=== PATIENT | male | born 1985 | race Caucasian/White ===

== ENCOUNTER 2017-01-29 09:10 | Emergency (ER) | payer BC ==
[2017-01-29] MEDS ORDERED: Ketorolac 60 MG/2 ML SDV IM ONE (10:09)
--- NOTE | 2017-01-29 10:18 | EDM.PDOC ---
ED HPI GENERAL MEDICAL PROBLEM - General Chief Complaint: Back Pain or Injury Stated Complaint: BACK PAIN Time Seen by Provider: 01/29/17 09:19 Source of Information: Reports: Patient History Limitations: Reports: No Limitations - History of Present Illness INITIAL COMMENTS - FREE TEXT/NARRATIVE: HISTORY AND PHYSICAL: History of present illness: Patient is a 31-year-old male who presents to the emergency room with complaints of low back pain that radiates down his left gluteus. Patient reports that he has had low back pain for several years, chiropractor told him he had a bulging disc at L4-L5 but has not had any imaging to confirm this. He states that he has set up an appointment with a primary care provider, Dr. Walker Kaplan, on Thursday to get his back pain further managed. He noticed over the past couple days while at work she has had increased low back pain with it radiating down the left gluteus some numbness and tingling. He states he had gone to a chiropractor yesterday with moderate relief but again woke up this morning with increased pain. Denies any recent injury or trauma to the back. Denies any urinary or fecal incontinence. States he has never had an x-ray of his low back. Review of systems: As per history of present illness and below otherwise all systems reviewed and negative. Past medical history: As per history of present illness and as reviewed below otherwise noncontributory. Surgical history: As per history of present illness and as reviewed below otherwise noncontributory. Social history: No reported history of drug or alcohol abuse. Family history: As per history of present illness and as reviewed below otherwise noncontributory. Physical exam: Gen.: Developed and well-nourished 31-year-old male. Able to speak in full sentences without shortness of breath. Alert and oriented. HEENT: Atraumatic, normocephalic, pupils reactive, negative for conjunctival pallor or scleral icterus, mucous membranes moist, throat clear, neck supple, nontender, trachea midline. Lungs: Clear to auscultation, breath sounds equal bilaterally, chest nontender. Heart: S1S2, regular rate and rhythm Abdomen: Soft, nondistended, nontender. Negative for masses or hepatosplenomegaly. Negative for costovertebral tenderness. Pelvis: Stable nontender. Genitourinary: Deferred. Rectal: Deferred. Back: Cervical spine and back were palpated with no tenderness, crepitus, or obvious deformities or step-offs. Patient does have flexion and extension at the hips and is able to twist side to side without difficulty. Extremities: Atraumatic, negative for cords or calf pain. Strong palpable pedal pulses bilaterally. Neurovascular unremarkable. Skin: Warm, dry and intact. No obvious lesions or sores noted. Neuro: Awake, alert, oriented. Cranial nerves II through XII unremarkable. Cerebellum unremarkable. Motor and sensory unremarkable throughout. Exam nonfocal. Diagnostics: Lumbar spine x-ray Therapeutics: Toradol and Norflex IM Impression: Lumbar back pain with sciatica Plan: 1. Please take your medications as prescribed. With the Cataflam I would like you to take this with food and do not take any additional NSAIDs with this. Please take Flexeril as prescribed, may cause some drowsiness and do not take this while driving or needing to be functioning at work. You may take Tylenol [id number] as needed for breakthrough pain. 2. If your symptoms worsen or new symptoms arise I would like you to follow-up in the emergency room as we discussed. Follow-up with Dr. Walker Kaplan as you already have scheduled for Thursday. Please inform them that you did have an x- ray and he can look at these results. Definitive disposition and diagnosis as appropriate pending reevaluation and review of above. Onset: Gradual Duration: Chronic Location: Reports: Back Bilateral Lower Back Pain Score (Numeric/FACES): 9 - Related Data Allergies Allergy/AdvReac Type Severity Reaction Status Date / Time Penicillins Allergy Other Verified 01/29/17 09:23 Sulfa (Sulfonamide Allergy Other Verified 01/29/17 09:23 Antibiotics) Home Meds: Home Meds Excedrin 4 tab PO DAILY 01/29/17 [History] Past Medical History HEENT History: Reports: Other (See Below) Other HEENT History: Ear Drum Rupture Musculoskeletal History: Reports: Back Pain, Chronic Neurological History: Reports: Brain Injury, Concussion, Other (See Below) - Infectious Disease History Infectious Disease History: Reports: Chicken Pox - Past Surgical History HEENT Surgical History: Reports: Adenoidectomy, Tonsillectomy Musculoskeletal Surgical History: Reports: Other (See Below) Other Musculoskeletal Surgeries/Procedures:: Multiple Broken Bones, Chronic Back Pain L4-5 Disk Buldge with Degenerative Disk Disease Social & Family History - Family History Family Medical History: Noncontributory - Tobacco Use Smoking Status *Q: Current Every Day Smoker Years of Tobacco use: 14 Packs/Tins Daily: 1 Used Tobacco, but Quit: No Second Hand Smoke Exposure: No - Caffeine Use Caffeine Use: Reports: Energy Drinks, Soda - Recreational Drug Use Recreational Drug Use: No ED ROS GENERAL - Review of Systems Review Of Systems: ROS reveals no pertinent complaints other than HPI. ED EXAM,LOWER BACK PAIN/INJURY - Physical Exam Exam: See Below (See dictation) Course - Vital Signs Last Recorded V/S: Last Vital Signs Temp 36.2 C 01/29/17 09:23 Pulse 96 01/29/17 09:23 Resp 18 01/29/17 09:23 BP 150/107 H 01/29/17 09:23 Pulse Ox 97 01/29/17 09:23 - Orders/Labs/Meds Orders: Active Orders 24 hr Category Date Time Status Orphenadrine [Norflex] Med 01/29/17 10:15 Active 60 mg IM Q12H Medication Orders Orphenadrine Citrate (Norflex) 60 mg IM Q12H MICHELE Last Admin: 01/29/17 10:33 Dose: 60 mg Meds: Medications Generic Name Dose Route Start Last Admin Trade Name Freq PRN Reason Stop Dose Admin Orphenadrine Citrate 60 mg 01/29/17 10:15 01/29/17 10:33 Norflex IM 60 mg Q12H MICHELE Administration Discontinued Medications Generic Name Dose Route Start Last Admin Trade Name Freq PRN Reason Stop Dose Admin Ketorolac Tromethamine 60 mg 01/29/17 10:09 01/29/17 10:33 Toradol IM 01/29/17 10:10 60 mg ONETIME ONE Administration Departure - Departure Time of Disposition: 11:09 Disposition: Home, Self-Care 01 Clinical Impression: Lumbar back pain Qualifiers: Chronicity: chronic Back pain laterality: left Sciatica presence: with sciatica Sciatica laterality: sciatica of left side Qualified Code(s): M54.42 - Lumbago with sciatica, left side - Discharge Information Referrals: PCP,None [Primary Care Provider] - Forms: ED Department Discharge Additional Instructions: My general discharge The following information is given to patients seen in the emergency department who are being discharged to home. This information is to outline your options for follow-up care. We provide all patients seen in our emergency department with a follow-up referral. The need for follow-up, as well as the timing and circumstances, are variable depending upon the specifics of your emergency department visit. If you don't have a primary care physician on staff, we will provide you with a referral. We always advise you to contact your personal physician following an emergency department visit to inform them of the circumstance of the visit and for follow-up with them and/or the need for any referrals to a consulting specialist. The emergency department will also refer you to a specialist when appropriate. This referral assures that you have the opportunity for follow-up care with a specialist. All of these measure are taken in an effort to provide you with optimal care, which includes your follow-up. Under all circumstances we always encourage you to contact your private physician who remains a resource for coordinating your care. When calling for follow-up care, please make the office aware that this follow-up is from your recent emergency room visit. If for any reason you are refused follow-up, please contact the [facility] Emergency Department at and asked to speak to the emergency department charge nurse. [address] [address] 1. Please take your medications as prescribed. With the Cataflam I would like you to take this with food and do not take any additional NSAIDs with this. Please take Flexeril as prescribed, may cause some drowsiness and do not take this while driving or needing to be functioning at work. You may take Tylenol [id number] as needed for breakthrough pain. 2. If your symptoms worsen or new symptoms arise I would like you to follow-up in the emergency room as we discussed. Follow-up with Dr. Walker Kaplan as you already have scheduled for Thursday. Please inform them that you did have an x- ray and he can look at these results. - My Orders Last 24 Hours: My Active Orders 01/29/17 10:15 Orphenadrine [Norflex] 60 mg IM Q12H - Assessment/Plan Last 24 Hours: My Active Orders 01/29/17 10:15 Orphenadrine [Norflex] 60 mg IM Q12H
--- NOTE | 2017-01-29 10:57 | CR ---
EXAMINATION: Lumbar spine HISTORY: Pain COMPARISON: 08/18/2014 TECHNIQUE: AP and lateral views FINDINGS: There is a trace levocurvature of the thoracolumbar spine otherwise the lumbar spinal align ment is normal. Vertebral body heights and disc spaces appear maintained. No fracture or acute osseou s abnormality demonstrated. Facet hypertrophic changes are noted probably at L3-L4 and L4-L5. SI join ts are symmetric. Bone mineralization is normal. IMPRESSION: Early degenerative changes without acute findings.
[2017-01-29 11:27] VITALS: BP 140/93
== END 2017-01-29 11:24 | disposition home or self-care (01) ==
LOC: MW.ED 09:10
DX: M54.42 Lumbago with sciatica, left side (principal); F17.210 Nicotine dependence, cigarettes, uncomplicated; Z88.0 Allergy status to penicillin; Z88.2 Allergy status to sulfonamides; Z79.899 Other long term (current) drug therapy
CPT/HCPCS: 72100; 96372; 99283; J1885; J2360

== ENCOUNTER 2017-07-16 06:50 | Emergency (ER) | payer SELFPAY ==
--- NOTE | 2017-07-16 07:08 | EDM.PDOC ---
ED HPI GENERAL MEDICAL PROBLEM - General Stated Complaint: THROWING UP BLOOD Time Seen by Provider: 07/16/17 07:01 - History of Present Illness INITIAL COMMENTS - FREE TEXT/NARRATIVE: HISTORY AND PHYSICAL: History of present illness: Patient is a 32-year-old male presents with concern of intermittent abdominal pain and states vomiting dark material over last 24 hours he denies chest pain short of breath denies melena or hematochezia denies history of known gastritis or ulcer disease. Review of systems: As per history of present illness and below otherwise all systems reviewed and negative. Past medical history: As per history of present illness and as reviewed below otherwise noncontributory. Surgical history: As per history of present illness and as reviewed below otherwise noncontributory. Social history: No reported history of drug or alcohol abuse. Family history: As per history of present illness and as reviewed below otherwise noncontributory. Physical exam: HEENT: Atraumatic, normocephalic, pupils reactive, negative for conjunctival pallor or scleral icterus, mucous membranes moist, throat clear, neck supple, nontender, trachea midline. Lungs: Clear to auscultation, breath sounds equal bilaterally, chest nontender. Heart: S1S2, regular, negative for clicks, rubs, or JVD. Abdomen: Soft, nondistended, nontender. Negative for masses or hepatosplenomegaly. Negative for costovertebral tenderness. Pelvis: Stable nontender. Genitourinary: Deferred. Rectal: Deferred. Extremities: Atraumatic, negative for cords or calf pain. Neurovascular unremarkable. Neuro: Awake, alert, oriented. Cranial nerves II through XII unremarkable. Cerebellum unremarkable. Motor and sensory unremarkable throughout. Exam nonfocal. Diagnostics: CBC CMP PT/INR H pylori chest x-ray Therapeutics: Saline 1 L bolus Zofran 4 mg IV Protonix 80 mg IV Impression: #1 vomiting #2 gastritis rule out peptic ulcer disease Definitive disposition and diagnosis as appropriate pending reevaluation and review of above. - Related Data Allergies Allergy/AdvReac Type Severity Reaction Status Date / Time Penicillins Allergy Other Verified 07/16/17 07:10 Sulfa (Sulfonamide Allergy Other Verified 07/16/17 07:10 Antibiotics) Home Meds: Home Meds . [No Known Home Meds] 07/16/17 [History] Past Medical History HEENT History: Reports: Other (See Below) Other HEENT History: Ear Drum Rupture Musculoskeletal History: Reports: Back Pain, Chronic Neurological History: Reports: Brain Injury, Concussion, Other (See Below) - Infectious Disease History Infectious Disease History: Reports: Chicken Pox - Past Surgical History HEENT Surgical History: Reports: Adenoidectomy, Tonsillectomy Musculoskeletal Surgical History: Reports: Other (See Below) Other Musculoskeletal Surgeries/Procedures:: Multiple Broken Bones, Chronic Back Pain L4-5 Disk Buldge with Degenerative Disk Disease Social & Family History - Family History Family Medical History: Noncontributory - Tobacco Use Smoking Status *Q: Current Every Day Smoker Years of Tobacco use: 14 Packs/Tins Daily: 1 Used Tobacco, but Quit: No Second Hand Smoke Exposure: No - Caffeine Use Caffeine Use: Reports: Energy Drinks, Soda - Recreational Drug Use Recreational Drug Use: No ED ROS GENERAL - Review of Systems Review Of Systems: ROS reveals no pertinent complaints other than HPI. ED EXAM, GENERAL - Physical Exam Exam: See Below (See dictation) Course - Vital Signs Last Recorded V/S: Last Vital Signs Temp 35.8 C 07/16/17 07:06 Pulse 79 07/16/17 07:06 Resp 18 07/16/17 07:06 BP 127/80 07/16/17 07:06 Pulse Ox 98 07/16/17 07:06 - Orders/Labs/Meds Orders: Active Orders 24 hr Category Date Time Status Chest 1V Frontal [CR] Stat Exams 07/16/17 07:08 Taken Labs: Laboratory Tests 07/16/17 07/16/17 07/16/17 Range/Units 07:14 07:14 07:14 WBC 6.46 (4.0-11.0) K/uL RBC 5.03 (4.50-5.90) M/uL Hgb 15.2 (13.0-17.0) g/dL Hct 44.5 (38.0-50.0) % MCV 88.5 (80.0-98.0) fL MCH 30.2 (27.0-32.0) pg MCHC 34.2 (31.0-37.0) g/dL RDW Std Deviation 48.9 (28.0-62.0) fl RDW Coeff of Tip 15 (11.0-15.0) % Plt Count 246 (150-400) K/uL MPV 8.70 (7.40-12.00) fL Neut % (Auto) 54.2 (48.0-80.0) % Lymph % (Auto) 31.3 (16.0-40.0) % [place] % (Auto) 12.2 (0.0-15.0) % Eos % (Auto) 1.7 (0.0-7.0) % Baso % (Auto) 0.6 (0.0-1.5) % Neut # (Auto) 3.5 (1.4-5.7) K/uL Lymph # (Auto) 2.0 (0.6-2.4) K/uL [place] # (Auto) 0.8 (0.0-0.8) K/uL Eos # (Auto) 0.1 (0.0-0.7) K/uL Baso # (Auto) 0.0 (0.0-0.1) K/uL Nucleated RBC % 0.0 /100WBC Nucleated RBCs # 0 K/uL INR 1.09 Sodium 134 L (136-148) mmol/L Potassium 3.8 (3.5-5.1) mmol/L Chloride 102 (98-107) mmol/L Carbon Dioxide 25.5 (21.0-32.0) mmol/L BUN 10 (7.0-18.0) mg/dL Creatinine 0.9 (0.8-1.3) mg/dL Est Cr Clr Drug Dosing 139.54 mL/min Estimated GFR (MDRD) > 60.0 ml/min Glucose 93 (74-106) mg/dL Calcium 9.3 (8.5-10.1) mg/dL Total Bilirubin 6.3 H (0.2-1.0) mg/dL AST 810 H (15-37) IU/L ALT 1879 H (14-63) IU/L Alkaline Phosphatase 103 (46-116) U/L Total Protein 7.8 (6.4-8.2) g/dL Albumin 3.8 (3.4-5.0) g/dL Globulin 4.0 H (2.0-3.5) g/dL Albumin/Globulin Ratio 1.0 L (1.3-2.8) Lipase 301 (73-393) U/L H. pylori IgG Antibody (NEG) 07/16/17 Range/Units 07:14 WBC (4.0-11.0) K/uL RBC (4.50-5.90) M/uL Hgb (13.0-17.0) g/dL Hct (38.0-50.0) % MCV (80.0-98.0) fL MCH (27.0-32.0) pg MCHC (31.0-37.0) g/dL RDW Std Deviation (28.0-62.0) fl RDW Coeff of Tip (11.0-15.0) % Plt Count (150-400) K/uL MPV (7.40-12.00) fL Neut % (Auto) (48.0-80.0) % Lymph % (Auto) (16.0-40.0) % [place] % (Auto) (0.0-15.0) % Eos % (Auto) (0.0-7.0) % Baso % (Auto) (0.0-1.5) % Neut # (Auto) (1.4-5.7) K/uL Lymph # (Auto) (0.6-2.4) K/uL [place] # (Auto) (0.0-0.8) K/uL Eos # (Auto) (0.0-0.7) K/uL Baso # (Auto) (0.0-0.1) K/uL Nucleated RBC % /100WBC Nucleated RBCs # K/uL INR Sodium (136-148) mmol/L Potassium (3.5-5.1) mmol/L Chloride (98-107) mmol/L Carbon Dioxide (21.0-32.0) mmol/L BUN (7.0-18.0) mg/dL Creatinine (0.8-1.3) mg/dL Est Cr Clr Drug Dosing mL/min Estimated GFR (MDRD) ml/min Glucose (74-106) mg/dL Calcium (8.5-10.1) mg/dL Total Bilirubin (0.2-1.0) mg/dL AST (15-37) IU/L ALT (14-63) IU/L Alkaline Phosphatase (46-116) U/L Total Protein (6.4-8.2) g/dL Albumin (3.4-5.0) g/dL Globulin (2.0-3.5) g/dL Albumin/Globulin Ratio (1.3-2.8) Lipase (73-393) U/L H. pylori IgG Antibody NEGATIVE (NEG) Meds: Medications Discontinued Medications Generic Name Dose Route Start Last Admin Trade Name Freq PRN Reason Stop Dose Admin Sodium Chloride 1,000 mls @ 999 mls/hr 07/16/17 07:09 07/16/17 08:06 Normal Saline IV 07/16/17 08:09 999 mls/hr STAT ONE Infusion Ondansetron HCl 4 mg 07/16/17 07:09 07/16/17 07:33 Zofran IVPUSH 07/16/17 07:10 4 mg ONETIME ONE Administration Pantoprazole Sodium 80 mg 07/16/17 07:09 07/16/17 07:38 Protonix Iv IVPUSH 07/16/17 07:10 80 mg .BOLUS ONE Administration Departure - Departure Time of Disposition: 08:35 Disposition: Home, Self-Care 01 Condition: Good Clinical Impression: Gastritis - Discharge Information Referrals: PCP,None [Primary Care Provider] - Additional Instructions: The following information is given to patients seen in the emergency department who are being discharged to home. This information is to outline your options for follow-up care. We provide all patients seen in our emergency department with a follow-up referral. The need for follow-up, as well as the timing and circumstances, are variable depending upon the specifics of your emergency department visit. If you don't have a primary care physician on staff, we will provide you with a referral. We always advise you to contact your personal physician following an emergency department visit to inform them of the circumstance of the visit and for follow-up with them and/or the need for any referrals to a consulting specialist. The emergency department will also refer you to a specialist when appropriate. This referral assures that you have the opportunity for followup care with a specialist. All of these measure are taken in an effort to provide you with optimal care, which includes your followup. Under all circumstances we always encourage you to contact your private physician who remains a resource for coordinating your care. When calling for followup care, please make the office aware that this follow-up is from your recent emergency room visit. If for any reason you are refused follow-up, please contact the [facility] emergency department at and asked to speak to the emergency department charge nurse. MAYELA [facility] Specialty Care - General Surgery Professional Building [address] [place] [address], [address] [place] [address] Protonix as prescribed bland diet as directed follow-up Gen. surgery called to schedule routine appointment and return as needed as discussed - My Orders Last 24 Hours: My Active Orders 07/16/17 07:08 Chest 1V Frontal [CR] Stat - Assessment/Plan Last 24 Hours: My Active Orders 07/16/17 07:08 Chest 1V Frontal [CR] Stat
[2017-07-16] MEDS ORDERED: Pantoprazole 40 MG Vial IVPUSH ONE (07:09)
[2017-07-16] MEDS ORDERED: Ondansetron 4 MG/2 ML SDV IVPUSH ONE (07:09)
[2017-07-16] MEDS ORDERED: Sodium Chloride 0.9% 1,000 ML IV ONE (07:09)
[2017-07-16 08:11] LABS: CHLORIDE,CL 102 mmol/L (98-107); SODIUM,NA 134 mmol/L (136-148)
[2017-07-16 08:54] VITALS: BP 97/64
--- NOTE | 2017-07-16 15:21 | CR ---
EXAM DATE: 07/16/17 PATIENT'S AGE: 32 Patient: RICKEY GAFFNEY Facility: [place], [place] Site . Site : 1985 Study: XRay Chest [id number]/[id number] 8:04:18 AM Ordering Physician: Tari Gómez Final Report: INDICATION: PAIN ON RIGHT LATERAL SIDE COMPARISON: Chest x-ray dated 13 Sep 2015. FINDINGS: A single portable chest x-ray shows a normal cardiac silhouette. The lungs show no focal pulmonary opacities. Sharp pleural margins. No pneumothorax. Healed right clavicular fracture. IMPRESSION: No evidence of acute pulmonary abnormalities. Dictated by Miquel Noel MD @ 07/16/2017 8:25:46 AM Dictated by: Miquel Noel MD @ 07/16/2017 08:26:03 (Electronic Signature) Report Signed by Proxy. [facility]Joy
== END 2017-07-16 09:17 | disposition home or self-care (01) ==
LOC: MW.ED 06:50
DX: K29.70 Gastritis, unspecified, without bleeding (principal); F17.210 Nicotine dependence, cigarettes, uncomplicated; Z88.0 Allergy status to penicillin; Z88.2 Allergy status to sulfonamides
CPT/HCPCS: 36415; 71045; 80053; 83690; 85025; 85610; 86677; 96361; 96374; 96375; 99284; C9113; J2405; J7040; 99283

== ENCOUNTER 2025-01-21 23:09 | Emergency (ER) | payer BC ==
[2025-01-21 23:23] VITALS: BP 154/97; PULSE 65
[2025-01-22] MEDS: Diphtheria,Pertussis(Acell),Tetanus Vaccine 0.5 ML Syringe IM ONE (00:06)
== END 2025-01-22 00:10 | disposition home or self-care (01) ==
LOC: MW.ED 23:09
DX: S91.332A Puncture wound without foreign body, left foot, initial encounter (principal); Z88.0 Allergy status to penicillin; Z88.2 Allergy status to sulfonamides; Z79.899 Other long term (current) drug therapy; W45.0XXA Nail entering through skin, initial encounter
CPT/HCPCS: 90471; 90715; 99283; A9270